=== PATIENT | female | born 1975 | race Hispanic/Latino ===

== ENCOUNTER → 2020-08-26 | Outpatient (CLI) | payer OTHER ==
[~2020-08-26] MED LIST: ACETAMINOPHEN 1000 MG/100 ML 100 ML IV ONE; COVID-19 VACC, MRNA(MODERNA)/PF 100 MCG/0.5 ML VIAL IM ONE
== END ==
LOC: EDSEX → VACCPMC 10:57
DX: Z23 Encounter for immunization (principal); Z20.822 Contact with and (suspected) exposure to COVID-19
CPT/HCPCS: 0011A; 91301

== ENCOUNTER → 2020-09-23 | Outpatient (CLI) | payer OTHER ==
[~2020-09-23] MED LIST changes: -ACETAMINOPHEN 1000 MG/100 ML 100 ML IV ONE
== END | disposition home or self-care (01) ==
LOC: EDSEX → VACCPMC 10:56
DX: Z23 Encounter for immunization (principal); Z20.822 Contact with and (suspected) exposure to COVID-19
CPT/HCPCS: 91301